=== PATIENT | female | born 1945 | race Caucasian/White ===

== ENCOUNTER 2018-02-19 23:33 | Emergency (ER) | payer MEDICARE ==
[~2018-02-19] VITALS: Ht 162.6 cm; Wt 65.8 kg
[~2018-02-19 23:33] MED LIST: ALPR.25 PO; ALPR.5 PO; ALPR.5CR PO; ASPI325 PO; ASPI81CH PO; AZIT250 PO; Ativan0.5 MG PO; BENICAR; BENZ100A PO; CARV3.125; CEPH500 PO; CIPR500 PO; CLON.2 PO; CODGUAEL PO; CYCL10 PO; Cinnamon500 MG; FEXO60 PO; FURO20 PO; HYDACE5 PO; LISI20 PO; LISI5 PO; MECL25 PO; METO25; METO25ER PO; METO50ER PO; Motion Sickness25 M1 PO; NEBI10 PO; NEBI5 PO; NEBIVOLOL PO; OMEP20ER PO; PROG100; PROG100 PO; SULTRIDS PO; THYR60 PO; TOBR.3OPO OP; TRIHYD253A PO; Zofran Odt4 MG PO; [UNRECOGNIZED DRUG - REMARK]
[2018-02-20 00:09] LABS: BASOPHILS ABSOLUTE AUTO 0.03 K/mm3 (0.00-0.23); BASOPHILS PERCENT AUTO 1 % (0-2); EOSINOPHILS ABSOLUTE AUTO 0.21 K/mm3 (0.00-0.68); EOSINOPHILS PERCENT AUTO 4 % (0-6); Hematocrit 37.7 % (33.0-51.0); Hemoglobin 13.1 g/dL (11.5-16.0); IMMATURE GRAN ABSOLUTE AUTO 0.02 K/mm3 (0.00-0.10); IMMATURE GRAN PERCENT AUTO 0 % (0-1); LYMPHOCYTES PERCENT AUTO 33 % (21-46); MONOCYTES PERCENT AUTO 7 % (4-13); Mean Corpuscular HGB 30.6 pg (26.0-34.0); Mean Corpuscular HGB Conc 34.7 g/dL (31.5-36.5); Mean Corpuscular Volume 88 fL (80-100); Mean Platelet Volume 10.5 fL (9.1-12.4); NEUTROPHILS ABSOLUTE AUTO 3.13 K/mm3 (1.96-9.15); NEUTROPHILS PERCENT AUTO 55 % (41-73); Platelet Count 184 K/mm3 (150-400); Red Blood Cell Count 4.28 M/mm3 (3.80-5.20); White Blood Cell Count 5.69 K/mm3 (4.00-11.30)
[2018-02-20 00:46] LABS: Albumin, Blood 3.6 g/dL (3.4-5.0); Alk Phos 86 U/L (50-136); Anion Gap 8 mmol/L (6-16); Aspartate Aminotrans (AST/SGOT 32 U/L (12-37); Bilirubin, Total 0.4 mg/dL (0.1-1.0); Blood Urea Nitrogen 16 mg/dL (8-24); Bun/Creatinine Ratio 22.4 (12.0-20.0); CO2, Blood 27 mmol/L (21-32); Calcium, Blood 8.1 mg/dL (8.5-10.1); Chloride, Blood 108 mmol/L (98-108); Creatinine, Blood 0.72 mg/dL (0.40-1.00); Globulin, Blood 3.6 g/dL (2.2-4.0); Glomerular Filtration Rate >60 (60-); Glucose, Blood 139 mg/dL (70-99); Potassium, Blood 3.6 mmol/L (3.5-5.5); Sodium, Blood 143 mmol/L (136-145); Total Protein, Blood 7.2 g/dL (6.4-8.2)
[2018-02-20 00:47] LABS: Troponin I <0.015 ng/mL (0.000-0.040)
[2018-02-20 01:24] LABS: Alanine Aminotransfer (ALT/SGP 27 U/L (12-78)
== END 2018-02-20 04:49 | disposition home or self-care (01) ==
LOC: ER 23:33
PROVIDERS: Emergency Medicine
DX: R07.9 Chest pain, unspecified (principal); I10 Essential (primary) hypertension; F41.9 Anxiety disorder, unspecified; Z88.8 Allergy status to other drugs, medicaments and biological substances; Z88.0 Allergy status to penicillin; Z91.09 Other allergy status, other than to drugs and biological substances; Z91.048 Other nonmedicinal substance allergy status; Z79.899 Other long term (current) drug therapy; Z79.82 Long term (current) use of aspirin
CPT/HCPCS: 36415; 71046; 80053; 83880; 84484; 85025; 93005; 93010; 99285-25